=== PATIENT | female | born 2000 | race Hispanic/Latino ===

== ENCOUNTER 2024-06-26 11:09 | Emergency (ER) | payer SELFPAY ==
[2024-06-26 12:07] LABS: Absolute Eosinophils 0.1 K/uL (0-0.5); Absolute Lymphocytes (CBC) 1.4 K/uL (0.7-4.9); Absolute Monocytes 0.7 K/uL (0.1-1.3); Absolute Neutrophil 2.7 K/uL (1.8-8.0); Basophils % 0.6 % (0-1.3); Eosinophils % 1.1 % (0-4.4); Hematocrit 45.3 % (36.0-45.0); Lymphocytes % 28.6 % (15.3-44.8); MCHC 33.1 g/dL (32.0-36.0); MCV 93.6 fL (80-100); MPV 9.9 fL (7.6-11.3); Monocytes % 14.7 % (3.3-12.3); Nucleated Red Blood Cells % 0.1 % (0-0); Platelets 163 thou/uL (152-406); RBC Red Blood Cell Count 4.84 M/uL (3.86-4.86); Red Cell Distribution Width 13.9 % (12.1-15.2)
[2024-06-26 12:10] LABS: Specific Gravity 1.024 (1.005-1.030)
[2024-06-26] MEDS ORDERED: KETOROLAC 30 MG/ML INJ ONE (12:13)
[2024-06-26] MEDS ORDERED: ONDANSETRON 4 MG/2 ML VIAL ONE (12:13)
[2024-06-26] MEDS ORDERED: NA CHLORIDE 0.9% 1,000 ML ONE (12:14)
[2024-06-26 12:16] LABS: Calcium Oxalate Crystals- Ur Few /HPF (None Seen); Specific Gravity 1.024 (1.005-1.030); Sqamous Epithelial >50 /HPF (None Seen); Urine Bacteria >50 /HPF (<20); Urine Bilirubin NEGATIVE (Negative); Urine Blood 1+ (Negative); Urine Clarity Extremely Turbid (Clear); Urine Color Light-Orange (Yellow); Urine Culture Reflex Order NOT NEEDED; Urine Glucose NEGATIVE (Negative); Urine Ketones TRACE (Negative); Urine Micro Reflex YN NO BILL MICROSCOPIC; Urine Mucus 4+ /HPF (None Seen); Urine Nitrite NEGATIVE (Negative); Urine Protein 2+ (Negative); Urine RBC 21-50 /HPF (None Seen); Urine Urobilinogen 1+ (Normal); Urine WBC >50 /HPF (<5)
[2024-06-26 12:25] LABS: Albumin 4.3 g/dL (3.4-5.0); Albumin/Globulin Ratio 1.2 (1.1-1.8); Anion Gap 10.3 mEq/L (5.0-15.0); Bilirubin Total 0.7 mg/dL (0.2-1.0); Globulin 3.5 g/dL (2.3-3.5); Potassium 3.3 mEq/L (3.5-5.1); Protein, Total 7.8 g/dL (6.4-8.2)
[2024-06-26 12:33] LABS: SARS-CoV-2 Antigen CONTROL BLUE LINE VIS/BG OK
[2024-06-26 12:34] LABS: SARS-CoV-2 Antigen Rapid Res Positive (Negative)
[2024-06-26 12:42] LABS: Blood Morphology Comment NOT SEEN (NOT SEEN); Platelet Estimate ADEQ; White Blood Cell Scan OK (OK)
--- NOTE | 2024-06-26 13:45 | EDPHYS ---
Physician Documentation [facility] Name: Shima Bocanegra Age: 24 yrs Sex: Female : 2000 Arrival Date: 06/26/2024 Time: 11:09 Bed 11 Private MD: ED Physician Jhonatan Turner HPI: 06/26 11:22 This 24 yrs old Female presents to ER via Ambulatory with complaints of Sore ec2 Throat, Vomiting, Abdominal Pain. 11:22 Patient arrives today for evaluation of sore throat. Patient reports she is having ec2 cough and cold symptoms, states that she is having decreased p.o. intake, malaise, nausea, vomiting. Patient reports no diarrhea symptoms. Patient reports no urinary complaints. Patient reports otherwise no previous significant medical problems or daily medications.. 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 - Infectious Disease History:: Denies. - Social history:: Smoking status: Reported history of juuling and/or vaping. Patient uses street drugs, marijuana. ROS: 11:22 Constitutional: as per hpi ec2 Exam: 11:22 Constitutional: GEN: NAD Head: atraumatic Eyes: EOMI Ears: External ears are normal. ec2 Mouth: Posterior pharyngeal erythema noted, no exudates. Anterior cervical lymphadenopathy noted. CV: regular rate LUNGS: no respiratory distress ABD: non-distended, soft, nontender, no guarding, not rigid SKIN: no evidence of rashes MSK: no evidence of trauma Vital Signs: 11:17 BP 118 / 78; Pulse 88; Resp 16; Temp 98.6(O); Pulse Ox 97% ; Weight 49.9 kg; Height 5 db ft. 5 in. ; 12:30 BP 114 / 93; Pulse 54; Resp 16; Pulse Ox 99% on R/A; me1 13:28 BP 116 / 76; Pulse 79; Resp 14; Pulse Ox 100% on R/A; me1 11:17 Body Mass Index 18.30 (49.90 kg, 165.1 cm) db MDM: 11:22 Data reviewed: vital signs. ED course: Patient arrives today for URI signs and ec2 symptoms. Examination remarkable for well-appearing nontoxic individuals otherwise in no acute distress with a reassuring examination. Will obtain lab work, urine studies, viral swab as well as strep swab. Differential clued viral infection, urinary tract infection, , strep pharyngitis. Will give the patient crystalloid, Zofran, Toradol.. 11:24 Patient medically screened. ec2 12:22 ED course: MarkedlyCBC reassuring. Urine is contaminated, will defer therapy to ec2 culture. negative. Pending rest of lab work and viral swabs . 13:42 ED course: Patient positive COVID. Will discharge home. Return precautions given. ec2 06/26 11:22 Order name: Strep ec2 06/26 11:22 Order name: CBC with Diff; Complete Time: 13:42 ec2 06/26 11:22 Order name: CMP; Complete Time: 13:42 ec2 06/26 11:22 Order name: UAM; Complete Time: 12:21 ec2 06/26 11:22 Order name: Test, Urine; Complete Time: 12:21 ec2 06/26 11:22 Order name: Influenza Screen (a \T\ B); Complete Time: 13:42 ec2 06/26 11:22 Order name: SARS RAPID; Complete Time: 13:42 ec2 06/26 12:11 Order name: CBC Smear Scan; Complete Time: 13:42 EDMS 06/26 12:35 Order name: Throat Culture EDMS Administered Medications: 12:27 Drug: NS 0.9% IV 1000 ml IV at 1 bolus Per protocol; 1000 mL bolus Route: IV; Rate: 1 me1 bolus; Site: left antecubital; 13:22 Follow up: Response: No adverse reaction; IV Status: Completed infusion; IV Intake: me1 1000ml 12:28 Drug: Ondansetron IVP 4 mg IVP once; over 2 minutes Route: IVP; Site: left antecubital; me1 12:46 Follow up: Response: No adverse reaction; Nausea is decreased me1 12:28 Drug: Ketorolac IVP 15 mg IVP once Route: IVP; Site: left antecubital; me1 12:46 Follow up: Response: No adverse reaction; Pain is decreased me1 Disposition Summary: 06/26/24 13:44 Discharge Ordered Notes: Location: Home ec2 Condition: Stable ec2 Diagnosis - SARS-associated coronavirus as the cause of diseases classified elsewhere ec2 Followup: ec2 - With: Private Physician - When: - Reason: Re-evaluation by your physician Discharge Instructions: - Discharge Summary Sheet ec2 - COVID-19 ec2 Forms: - Work release form ec2 - Medication Reconciliation Form ec2 - Antibiotic Education ec2 - Prescription Opioid Use ec2 - Patient Portal Instructions ec2 - Leadership Thank You Letter ec2 Prescriptions: - Compazine 10 mg Oral Tablet - take 1 tablet ORAL route every 8 hours As needed; 20 tablet; Refills: 0, ec2 Product Selection Permitted Signatures: Dispatcher [employer] Harleen Peterson, RN RN db Fozia Castillo RN RN me1 Jhonatan Turner MD MD ec2 Corrections: (The following items were deleted from the chart) 11:23 11:23 CBC+H.LAB.BRZ ordered. EDMS EDMS 11:23 11:23 COMPREHENSIVE METABOLIC PANEL+C.LAB.BRZ ordered. EDMS EDMS 11:23 11:23 Urinalysis W/Microscopic+U.LAB.BRZ ordered. EDMS EDMS 11:23 11:23 Test, Urine+UC.LAB.BRZ ordered. EDMS EDMS 11:23 11:23 Group A Streptococcus Rapid Sc+BA.LAB.BRZ ordered. EDMS EDMS 11:23 11:23 Influenza Screen (A \T\ B)+BA.LAB.BRZ ordered. EDMS EDMS 11:23 11:23 SARS-COV-2 Antigen Rapid+I.LAB.BRZ ordered. EDMS EDMS
--- NOTE | 2024-06-26 13:45 | ER ---
Nurse's Notes [facility] Name: Shima Bocanegra Age: 24 yrs Sex: Female : 2000 Arrival Date: 06/26/2024 Time: 11:09 Bed 11 Private MD: Diagnosis: SARS-associated coronavirus as the cause of diseases classified elsewhere Presentation: 06/26 11:17 Chief complaint: Patient states: VOMITING, EPIGASTRIC PAIN "CHEST PAIN" AND SORE THROAT db X 3 DAYS. VOMITING STARTED THEN UPPER EPIGASTRIC PAIN. Coronavirus screen: Client denies travel out of the [place] in the last 14 days. At this time, the client does not indicate any symptoms associated with coronavirus-19. Ebola Screen: Patient negative for fever greater than or equal to 101.5 degrees Fahrenheit, and additional compatible Ebola Virus Disease symptoms Patient denies exposure to infectious person. Patient denies travel to an Ebola-affected area in the 21 days before illness onset. No symptoms or risks identified at this time. Initial Sepsis Screen: Does the patient meet any 2 criteria? No. Patient's initial sepsis screen is negative. Does the patient have a suspected source of infection? No. Patient's initial sepsis screen is negative. Risk Assessment: Do you want to hurt yourself or someone else? Patient reports no desire to harm self or others. 11:17 Method Of Arrival: Ambulatory db 11:17 Acuity: ALBERT 3 db 11:20 Onset of symptoms was June 23, 2024. db Triage Assessment: 11:20 General: Appears in no apparent distress. comfortable, Behavior is calm, cooperative. db Pain: Complains of pain in abdomen and neck. EENT: Reports SORE THROAT. Neuro: Level of Consciousness is awake, alert, obeys commands, Oriented to person, place, time, situation. Respiratory: Airway is patent Respiratory effort is even, unlabored, Respiratory pattern is regular, symmetrical. GI: Abdomen is flat, non-distended, Reports upper abdominal pain. 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 - Infectious Disease History:: Denies. - Social history:: Smoking status: Reported history of juuling and/or vaping. Patient uses street drugs, marijuana. Screenin:30 [facility] ED Fall Risk Assessment (Adult) History of falling in the last 3 months, me1 including since admission No falls in past 3 months (0 pts) Confusion or Disorientation No (0 pts) Intoxicated or Sedated No (0 pts) Impaired Gait No (0 pts) Mobility Assist Device Used No (0 pt) Altered Elimination No (0 pt) Score/Fall Risk Level 0 - 2 = Low Risk Maintained a safe environment, Provided non-skid footwear, Hourly rounding (assess needs \\T\\ fall precautionary measures) done. Abuse screen: Denies threats or abuse. Nutritional screening: No deficits noted. Tuberculosis screening: No symptoms or risk factors identified. Assessment: 12:30 General: Appears uncomfortable, ill, well developed, well nourished, Behavior is calm, me1 cooperative, appropriate for age, Reports fever for 2-3 days, feeling ill for 2-3 days, fatigue for 2-3 days. Pain: Complains of pain in neck and abdomen Pain does not radiate. Pain currently is 4 out of 10 on a pain scale. Quality of pain is described as tender, Pain began gradually, 2-3 days ago. Is continuous. Neuro: Level of Consciousness is awake, alert, obeys commands, Oriented to person, place, time, situation, Appropriate for age. Cardiovascular: Patient's skin is warm and dry. Respiratory: Reports cough that is pain with cough Airway is patent Trachea midline Respiratory effort is even, unlabored, Respiratory pattern is regular, symmetrical, Breath sounds are clear bilaterally. GI: Reports diarrhea, nausea, vomiting, since 3 days ago. : No signs and/or symptoms were reported regarding the genitourinary system. EENT: Throat is reddened. Derm: Skin is intact, is healthy with good turgor, Skin is pink, warm \\T\\ dry. Musculoskeletal: No signs and/or symptoms reported regarding the musculoskeletal system. Vital Signs: 11:17 BP 118 / 78; Pulse 88; Resp 16; Temp 98.6(O); Pulse Ox 97% ; Weight 49.9 kg; Height 5 db ft. 5 in. ; 12:30 BP 114 / 93; Pulse 54; Resp 16; Pulse Ox 99% on R/A; me1 13:28 BP 116 / 76; Pulse 79; Resp 14; Pulse Ox 100% on R/A; me1 11:17 Body Mass Index 18.30 (49.90 kg, 165.1 cm) db ED Course: 11:10 Patient arrived in ED. mr 11:14 Jhonatan Turner MD is Attending Physician. ec2 11:20 Triage completed. db 11:21 Arm band placed on Patient placed in an exam room. db 11:55 Initial lab(s) drawn, by me, sent to lab. COVID swab sent to lab. Flu and/or RSV swab bc6 sent to lab. Strep swab sent to lab. Missed attempt(s): 22 gauge in right wrist. Bleeding controlled, band aid applied, catheter tip intact. 12:01 SARS RAPID Sent. bc6 12:01 Influenza Screen (a \\T\\ B) Sent. bc6 12:01 Strep Sent. bc6 12:01 Test, Urine Sent. bc6 12:01 UAM Sent. bc6 12:01 CMP Sent. 6 12:01 CBC with Diff Sent. bc6 12:01 Missed attempt(s): 20 gauge in right antecubital area. Bleeding controlled, band aid bc6 applied, catheter tip intact. 12:03 Patient placed in an exam room, on a stretcher. ll1 12:07 Fozia Castillo, RN is Primary Nurse. me1 12:27 Inserted saline lock: 22 gauge in left antecubital area, using aseptic technique. me1 12:30 Patient has correct armband on for positive identification. Bed in low position. Call me1 light in reach. Side rails up X2. Provided Education on: POC. Verbalized understanding. . Client placed on continuous cardiac and pulse oximetry monitoring. NIBP monitoring applied. athletic monitor on. Pulse ox on. NIBP on. 12:30 No provider procedures requiring assistance completed. me1 12:34 Notified ED physician of a critical lab result(s). covid +. ll1 13:55 IV discontinued, intact, bleeding controlled, No redness/swelling at site. Pressure me1 dressing applied. Administered Medications: 12:27 Drug: NS 0.9% IV 1000 ml IV at 1 bolus Per protocol; 1000 mL bolus Route: IV; Rate: 1 me1 bolus; Site: left antecubital; 13:22 Follow up: Response: No adverse reaction; IV Status: Completed infusion; IV Intake: me1 1000ml 12:28 Drug: Ondansetron IVP 4 mg IVP once; over 2 minutes Route: IVP; Site: left antecubital; me1 12:46 Follow up: Response: No adverse reaction; Nausea is decreased me1 12:28 Drug: Ketorolac IVP 15 mg IVP once Route: IVP; Site: left antecubital; me1 12:46 Follow up: Response: No adverse reaction; Pain is decreased me1 Medication: 12:30 VIS not applicable for this client. me1 Intake: 13:22 IV: 1000ml; Total: 1000ml. me1 Outcome: 13:44 Discharge ordered by MD. ec2 13:55 Discharged to home ambulatory, with family, me1 13:55 Condition: stable 13:55 Discharge instructions given to patient, family, Instructed on discharge instructions, follow up and referral plans. medication usage, Demonstrated understanding of instructions, follow-up care, medications, Prescriptions given X 1, 13:56 Patient left the ED. me1 Signatures: Gabrielle Crespo, Reg Dav mr Breonna Petit, RN RN ll1 Harleen Mota, AUGIE RN db Silvana Gonsales bc6 Fozia Castillo RN RN me1 Jhonatan Turner MD MD ec2
[2024-06-26 14:13] VITALS: TEMP 98.6
[2024-06-26 14:17] VITALS: BP 116/76; O2SAT 100
== END 2024-06-26 13:56 | disposition home or self-care (01) ==
LOC: ER 11:09
DX: U07.1 COVID-19 (principal)
CPT/HCPCS: 36415; 80053; 81001; 81025; 85025; 87070; 87081; 87804; 87811; J2405; J7030